=== PATIENT | male | born 1935 | race Caucasian/White ===

== ENCOUNTER 2017-03-24 05:54 | Day surgery (SDC) | payer MEDICARE, BC, OTHER ==
[2017-03-23 13:50] VITALS: BMI 24.4
[2017-03-24] MEDS ORDERED: Diprivan 0 ML ONE (07:25)
--- NOTE | 2017-03-24 09:56 | OP ---
DATE OF PROCEDURE: 03/24/2017 PREPROCEDURE DIAGNOSIS: Atrial flutter. POST-PROCEDURE DIAGNOSIS: Successful cardioversion. PROCEDURES PERFORMED: Synchronized cardioversion. SUMMARY: Mr. Hogan is a pleasant 81-year-old white gentleman who comes to the hospital for planned [facility] cardioversion. Please see CT report for details. After patient was cleared from blood clots, pads were placed. Anesthesia department provided with se dation for the patient. Please see their notes for details. After adequate sedation was achieved, a single 100 joules synchronized shock was delivered successfully, converting him from atrial flutter to sinus rhythm. He did have a few runs of nonsustained SVT post shock, but he has remained in sinus . RECOMMENDATIONS: 1. Continue flecainide, beta-siena and Eliquis for a minimum of 4 weeks. 2. If it recurs before the surgery we will plan on sending him to EP for an ablation prior to surger y. 3. May discharge home today. Follow up in the office in 2 weeks.
--- NOTE | 2017-03-24 10:05 | ECHO ---
TRANSESOPHAGEAL ECHOCARDIOGRAM: DATE OF SERVICE: 03/24/17 REASON FOR STUDY: Transesophageal echo was done for evaluation of thrombus. He has atrial flutter and is scheduled for cardioversion. TECHNIQUE: The anesthesia department provided anesthesia for the patient. Please see their notes for details. Af ter adequate sedation was achieved, the transesophageal probe was inserted into the patient's mouth a nd into the esophagus without problems. Multiplanar views were then obtained. FINDINGS: Left ventricle appears to be normal size with normal wall thickness. Systolic function appears to be low normal with EF estimated at about 50-55%. Left atrium is mildly dilated. Right atrium is mildly dilated. Right ventricle is normal size with normal systolic function. Aortic root is normal size. Aortic valve is structurally normal. No stenosis or regurgitation. Three cusps. Mitral valve is structurally normal. There is moderate mitral regurgitation. No stenosis. Tricuspid valve is structurally normal. There is mild TR. No stenosis. Pulmonary valve structurally normal. There is mild PI. No stenosis. Left atrial appendage is a large appendage with normal velocities while the patient in flutter and no evidence of mass or thrombus. Interatrial septum appears intact by color Doppler. Thoracic aorta shows minimal intimal thickening. No aneurysmal dilatations or dissections on the port ion that was reviewed. The arch was not well visualized. CONCLUSIONS: 1. LVEF at 50-55%. 2. Biatrial enlargement. 3. Moderate MR. 4. Large left atrial appendage without mass or thrombus. 5. Mild TR. 6. Mild PI.
== END 2017-03-24 09:55 | disposition home or self-care (01) ==
LOC: CCL 05:54
PROVIDERS: ATTEND Internal Medicine Cardiovascular Disease
DX: I48.3 Typical atrial flutter (principal); R35.0 Frequency of micturition; M19.90 Unspecified osteoarthritis, unspecified site; Z79.01 Long term (current) use of anticoagulants; Z79.899 Other long term (current) drug therapy; Z98.890 Other specified postprocedural states; Z85.828 Personal history of other malignant neoplasm of skin
CPT/HCPCS: 36415; 84443; 92960; 93312; J2704

== ENCOUNTER 2018-04-02 09:56 | Outpatient (CLI) | payer MEDICARE, BC, OTHER ==
--- NOTE | 2018-04-02 11:13 | ULT ---
RENAL ULTRASOUND: History: Chronic renal disease. FINDINGS: Real-time imaging of the right and left kidneys were performed. Right kidney measures 8.9 and the lef t kidney 9.3 cm in size. No signs of cyst, mass, or obstruction. Bladder is somewhat trabeculated in appearance. Bladder volume of 500 cc was noted. Post void was not obtained. IMPRESSION: 1. No evidence of cyst, mass, or obstruction or either kidney. 2. Irregular somewhat trabeculated appearance to the bladder wall. No focal discrete abnormality. POS: [facility]
== END 2018-04-02 09:57 | disposition home or self-care (01) ==
LOC: BICULT 09:56
PROVIDERS: ATTEND Internal Medicine Nephrology
DX: N18.3 Chronic kidney disease, stage 3 (moderate) (principal); N32.89 Other specified disorders of bladder
CPT/HCPCS: 76770

== ENCOUNTER 2020-08-06 11:53 | Outpatient (CLI) | payer MEDICARE, BC, OTHER ==
[2020-08-06 14:50] LABS: Bilirubin Neg (Negative); Blood, Urine 150 (Negative); Clarity Cloudy (Clear); Glucose, Urine (Dipstick) Normal (Negative); Ketone, Urine Negative (Negative); Leukocyte 500 (Negative); Nitrite Negative (Negative); Protein, Urine (Dipstick) 30 mg/dl (Neg-Trace); Urobilinogen Normal mg/dL (Less than 2)
[2020-08-06 15:15] LABS: Anion Gap 14 mmol/L (10-20); BUN (Urea Nitrogen) 34 mg/dL (8.4-25.7); Calc. Creatinine Clearance 0 mL/min (70-130); Calcium 8.7 mg/dL (7.8-10.44); Carbon Dioxide 24 mmol/L (23-31); Chloride 103 mmol/L (98-107); Glucose 70 mg/dL (83-110); Potassium 4.9 mmol/L (3.5-5.1); Sodium 136 mmol/L (136-145)
[2020-08-06 15:19] LABS: Hemoglobin 12.9 g/dL (13.5-17.5); Mean Corpuscular HGB CONC 33.1 g/dL (32.0-36.0); Mean Corpuscular Hemoglobin 30.6 pg (27.0-33.0); Mean Corpuscular Volume 92.6 fl (81.2-95.1); Platelet Count 204 10x3/uL (150-450); RBC Distribution Width 13.2 % (11.5-14.5); Red Blood Cell (RBC) Count 4.21 10x6/uL (4.32-5.72); White Blood Cell (WBC) Count 9.6 10x3/uL (3.5-10.5)
[2020-08-06 15:50] LABS: WBC/HPF Greater than 50 HPF (0-3)
[2020-08-06 15:54] LABS: Bacteria/HPF 1+ HPF (None Seen)
[2020-08-06 15:56] LABS: Squamous Epithelial 0-3 HPF (0-3)
== END 2020-08-06 11:54 | disposition home or self-care (01) ==
LOC: LABBT 11:53
PROVIDERS: ATTEND Urology
DX: Z01.818 Encounter for other preprocedural examination (principal); N40.1 Benign prostatic hyperplasia with lower urinary tract symptoms; R33.8 Other retention of urine
CPT/HCPCS: 80048; 81001; 85027; 87086; 93005; 93010

== ENCOUNTER 2020-08-11 09:00 | Observation (INO) | payer MEDICARE, BC, OTHER ==
[2020-08-10 10:03] VITALS: BMI 25.1
[2020-08-11] MEDS ORDERED: Levofloxacin 500 mg/D5W 100 ml Premix Bag ONE (09:53)
[2020-08-11] MEDS ORDERED: Ondansetron PF 4 MG/2 ML Vial ONE (13:14)
[2020-08-11] MEDS ORDERED: PROPOFOL 200 MG/20 ML VIAL ONE (13:14)
[2020-08-11] MEDS ORDERED: PHENYLEPHRINE-NS 100 MCG/ML 10 ML SYRINGE ONE (13:14)
[2020-08-11] MEDS ORDERED: Lidocaine 1% PF 5 ML VIAL ONE (13:14)
[2020-08-11] MEDS ORDERED: Dexamethasone 20 MG/5 ML VIAL ONE (13:14)
[2020-08-11] MEDS ORDERED: diphenhydrAMINE 50 MG/ML VIAL IVP PRN (13:20)
[2020-08-11] MEDS ORDERED: HYDROcodone/Acetaminophen 5/325 mg Tablet PO PRN (13:20)
[2020-08-11] MEDS ORDERED: Acetaminophen 500 MG TAB PO PRN (13:20)
[2020-08-11] MEDS ORDERED: Ketorolac Tromethamine 30 MG/ML VIAL IVP PRN (13:20)
[2020-08-11] MEDS ORDERED: Hyoscyamine Sulfate SL 0.125 mg Tablet SL PRN (13:20)
[2020-08-11] MEDS ORDERED: Ondansetron PF 4 MG/2 ML Vial IVP PRN (13:20)
[2020-08-11] MEDS ORDERED: Zolpidem Tartrate 5 MG TAB PO PRN (13:20)
[2020-08-11] MEDS ORDERED: hydrALAZINE 20 MG/ML VIAL SLOW IVP PRN (13:20)
[2020-08-11] MEDS ORDERED: Fentanyl 100 MCG/2 ML VIAL ONE (14:45)
[2020-08-11] MEDS: Sodium Chloride 0.9% 1,000 ML IV SCH (19:53)
[2020-08-11] MEDS: Docusate 100 MG CAP PO SCH (20:50)
[2020-08-11] MEDS ORDERED: Famotidine/PF 20 mg/2ml Vial SLOW IVP SCH (21:00)
[2020-08-11] MEDS ORDERED: Tamsulosin HCl 0.4 MG CAP PO SCH (21:00)
[2020-08-12] MEDS: Sodium Chloride 0.9% 1,000 ML IV SCH (01:22)
[2020-08-12 03:29] VITALS: BP 103/55; TEMP 97.6
[2020-08-12] MEDS ORDERED: Aspirin 81 mg Enteric Coated Tablet PO SCH (09:00)
[2020-08-12] MEDS: Docusate 100 MG CAP PO SCH (10:28)
== END 2020-08-12 11:26 | disposition home or self-care (01) ==
LOC: SDC 09:00 → SURG A 13:20
PROVIDERS: ADMIT Urology; ATTEND Urology
PROC: 0VT08ZZ Resection of Prostate, Via Natural or Artificial Opening Endoscopic (ICD-10-PCS; principal; 2020-08-11)
DX: N40.1 Benign prostatic hyperplasia with lower urinary tract symptoms (principal); R33.8 Other retention of urine; N32.89 Other specified disorders of bladder; N32.3 Diverticulum of bladder; M19.90 Unspecified osteoarthritis, unspecified site; E78.00 Pure hypercholesterolemia, unspecified; Z79.82 Long term (current) use of aspirin; Z79.899 Other long term (current) drug therapy
CPT/HCPCS: 88305; 96374; G0378; J1100; J1956; J2405; J2704; J3010; S0028

== ENCOUNTER 2022-02-18 11:04 | Outpatient (CLI) | payer MEDICARE, BC, OTHER ==
[2022-02-18 13:13] LABS: #Basophils 0.1 10x3/uL (0.0-0.2); #Eosinphils 0.3 10x3/uL (0.0-0.5); #Monocytes 0.7 10x3/uL (0.0-1.1); #Neutrophils 3.8 10x3/uL (1.5-8.4); %Basophils 0.8 % (0.0-2.0); %Eosinophils 4.1 % (0.0-6.0); %Lymphocytes 27.5 % (18.0-47.0); %Monocytes 9.9 % (0.0-10.0); %Neutrophils 57.5 % (40.0-75.0); Hemoglobin 15.5 g/dL (13.5-17.5); Mean Corpuscular HGB CONC 33.8 g/dL (32.0-36.0); Mean Corpuscular Hemoglobin 30.8 pg (27.0-33.0); Mean Corpuscular Volume 91.1 fl (81.2-95.1); Mean Platelet Volume 9.7 fl (7.4-10.4); Platelet Count 217 10x3/uL (150-450); RBC Distribution Width 13.4 % (11.5-14.5); Red Blood Cell (RBC) Count 5.04 10x6/uL (4.32-5.72); White Blood Cell (WBC) Count 6.7 10x3/uL (3.5-10.5)
[2022-02-18 13:39] LABS: Anion Gap 16 mmol/L (10-20); BUN (Urea Nitrogen) 43 mg/dL (8.4-25.7); Calc. Creatinine Clearance 0 mL/min (70-130); Calcium 9.3 mg/dL (7.8-10.44); Carbon Dioxide 23 mmol/L (23-31); Chloride 104 mmol/L (98-107); Estimated GFR 44; Glucose 84 mg/dL (83-110); Potassium 5.7 mmol/L (3.5-5.1); Sodium 137 mmol/L (136-145)
== END 2022-02-18 11:05 | disposition home or self-care (01) ==
LOC: LABBT 11:04
PROVIDERS: ATTEND Specialist
DX: Z01.818 Encounter for other preprocedural examination (principal); K40.90 Unilateral inguinal hernia, without obstruction or gangrene, not specified as recurrent
CPT/HCPCS: 80048; 85025; 93005; 93010

== ENCOUNTER 2022-03-23 14:34 | Outpatient (CLI) | payer MEDICARE, BC, OTHER ==
[2022-03-23 16:09] LABS: #Eosinphils 0.2 10x3/uL (0.0-0.5); #Monocytes 0.7 10x3/uL (0.0-1.1); #Neutrophils 6.1 10x3/uL (1.5-8.4); %Basophils 0.5 % (0.0-2.0); %Lymphocytes 19.5 % (18.0-47.0); %Monocytes 7.8 % (0.0-10.0); Hemoglobin 14.8 g/dL (13.5-17.5); Mean Corpuscular HGB CONC 33.5 g/dL (32.0-36.0); Mean Corpuscular Hemoglobin 30.5 pg (27.0-33.0); Mean Corpuscular Volume 90.9 fl (81.2-95.1); Mean Platelet Volume 10.1 fl (7.4-10.4); Platelet Count 224 10x3/uL (150-450); RBC Distribution Width 13.7 % (11.5-14.5); Red Blood Cell (RBC) Count 4.86 10x6/uL (4.32-5.72); White Blood Cell (WBC) Count 8.7 10x3/uL (3.5-10.5)
[2022-03-23 16:22] LABS: Anion Gap 15 mmol/L (10-20); BUN (Urea Nitrogen) 42 mg/dL (8.4-25.7); Calc. Creatinine Clearance 0 mL/min (70-130); Calcium 9.1 mg/dL (7.8-10.44); Carbon Dioxide 26 mmol/L (23-31); Chloride 101 mmol/L (98-107); Estimated GFR 32; Glucose 96 mg/dL (83-110); Potassium 4.8 mmol/L (3.5-5.1); Sodium 137 mmol/L (136-145)
== END 2022-03-23 14:35 | disposition home or self-care (01) ==
LOC: LABBT 14:34
PROVIDERS: ATTEND Internal Medicine Cardiovascular Disease
DX: Z01.818 Encounter for other preprocedural examination (principal); I48.92 Unspecified atrial flutter
CPT/HCPCS: 80048; 85025; 93005; 93010

== ENCOUNTER 2022-03-25 10:24 | Day surgery (SDC) | payer MEDICARE, BC, OTHER ==
[2022-03-24 10:08] VITALS: BMI 25.1
[2022-03-25] MEDS ORDERED: PROPOFOL 20 ML ONE (12:58)
[2022-03-25] MEDS ORDERED: GLYCOPYRROLATE/PF 0.2 MG/ML VIAL ONE (13:04)
== END 2022-03-25 14:32 | disposition home or self-care (01) ==
LOC: SDC 10:24
PROVIDERS: ATTEND Internal Medicine Cardiovascular Disease
PROC: B246ZZ4 Ultrasonography of Right and Left Heart, Transesophageal (ICD-10-PCS; principal; 2022-03-25)
PROC: 5A2204Z Restoration of Cardiac Rhythm, Single (ICD-10-PCS; 2022-03-25)
DX: I48.3 Typical atrial flutter (principal); I08.1 Rheumatic disorders of both mitral and tricuspid valves; I70.0 Atherosclerosis of aorta; I44.0 Atrioventricular block, first degree; M19.90 Unspecified osteoarthritis, unspecified site; Z79.01 Long term (current) use of anticoagulants; Z79.82 Long term (current) use of aspirin; Z79.899 Other long term (current) drug therapy
CPT/HCPCS: 92960; 93005; 93312; J3490; 93010; J2704

== ENCOUNTER 2022-04-28 12:33 | Outpatient (CLI) | payer MEDICARE, BC, OTHER ==
[2022-04-28 13:36] LABS: #Eosinphils 0.2 10x3/uL (0.0-0.5); #Monocytes 0.6 10x3/uL (0.0-1.1); #Neutrophils 4.3 10x3/uL (1.5-8.4); %Basophils 0.4 % (0.0-2.0); %Eosinophils 2.8 % (0.0-6.0); %Monocytes 9.1 % (0.0-10.0); %Neutrophils 64.4 % (40.0-75.0); Hemoglobin 14.4 g/dL (13.5-17.5); Mean Corpuscular HGB CONC 32.5 g/dL (32.0-36.0); Mean Corpuscular Hemoglobin 29.6 pg (27.0-33.0); Mean Platelet Volume 9.8 fl (7.4-10.4); Platelet Count 194 10x3/uL (150-450); RBC Distribution Width 14.1 % (11.5-14.5); Red Blood Cell (RBC) Count 4.87 10x6/uL (4.32-5.72); White Blood Cell (WBC) Count 6.7 10x3/uL (3.5-10.5)
[2022-04-28 13:46] LABS: Anion Gap 13 mmol/L (10-20); BUN (Urea Nitrogen) 37 mg/dL (8.4-25.7); Calc. Creatinine Clearance 0 mL/min (70-130); Calcium 8.7 mg/dL (7.8-10.44); Carbon Dioxide 25 mmol/L (23-31); Chloride 104 mmol/L (98-107); Estimated GFR 38; Glucose 77 mg/dL (83-110); Potassium 4.6 mmol/L (3.5-5.1); Sodium 137 mmol/L (136-145)
== END 2022-04-28 12:34 | disposition home or self-care (01) ==
LOC: LABBT 12:33
PROVIDERS: ATTEND Specialist
DX: Z01.818 Encounter for other preprocedural examination (principal); K40.90 Unilateral inguinal hernia, without obstruction or gangrene, not specified as recurrent
CPT/HCPCS: 71046; 80048; 85025; 93005; 93010

== ENCOUNTER 2022-05-05 11:06 | Day surgery (SDC) | payer MEDICARE, BC, OTHER ==
[2022-05-03 13:52] VITALS: BMI 25.1
[2022-05-05] MEDS ORDERED: Acetaminophen 500 MG TAB ONE (12:13)
[2022-05-05] MEDS ORDERED: Ketorolac Tromethamine 30 MG/ML VIAL ONE (12:13)
[2022-05-05] MEDS ORDERED: Metoprolol Tartrate 5 MG/5 ML VIAL ONE (12:26)
[2022-05-05] MEDS ORDERED: Metoprolol Tartrate 25 MG TAB PO SCH (12:30)
[2022-05-05] MEDS ORDERED: Bupivacaine/Epinephrine 0.25% 30 ML VIAL ONE (13:19)
[2022-05-05] MEDS ORDERED: CEFAZOLIN 2 GM VIAL ONE (14:11)
[2022-05-05] MEDS ORDERED: Sodium Chloride 0.9% 100 ML ONE (14:11)
[2022-05-05] MEDS ORDERED: fentaNYL PF 100 MCG/2 ML SYRINGE ONE (14:19)
[2022-05-05] MEDS ORDERED: SUGAMMADEX SODIUM 200 MG/2 ML VIAL ONE (14:19)
[2022-05-05] MEDS ORDERED: Ondansetron PF 4 MG/2 ML Vial ONE (14:30)
[2022-05-05] MEDS ORDERED: Dexamethasone 20 MG/5 ML VIAL ONE (14:30)
[2022-05-05] MEDS ORDERED: ePHEDrine 50 MG/ML VIAL ONE (14:30)
[2022-05-05] MEDS ORDERED: Lidocaine 1% PF 5 ML VIAL ONE (14:30)
[2022-05-05] MEDS ORDERED: Rocuronium Bromide 10 MG/ML (10ML VIAL) ONE (14:30)
[2022-05-05] MEDS ORDERED: PROPOFOL 200 MG/20 ML VIAL ONE (14:30)
== END 2022-05-05 17:50 | disposition home or self-care (01) ==
LOC: SDC 11:06
PROVIDERS: ATTEND Specialist
PROC: 0YU64JZ Supplement Left Inguinal Region with Synthetic Substitute, Percutaneous Endoscopic Approach (ICD-10-PCS; principal; 2022-05-05)
PROC: 8E0W4CZ Robotic Assisted Procedure of Trunk Region, Percutaneous Endoscopic Approach (ICD-10-PCS; 2022-05-05)
DX: K40.91 Unilateral inguinal hernia, without obstruction or gangrene, recurrent (principal); N35.919 Unspecified urethral stricture, male, unspecified site; I48.92 Unspecified atrial flutter; I44.0 Atrioventricular block, first degree; E78.00 Pure hypercholesterolemia, unspecified; M19.90 Unspecified osteoarthritis, unspecified site; Z79.01 Long term (current) use of anticoagulants; Z79.899 Other long term (current) drug therapy; Z98.890 Other specified postprocedural states
CPT/HCPCS: 49651; C1769; C1781; J1100; J1885; J2405; J2704; J3490

== ENCOUNTER 2022-09-23 10:43 | Inpatient (IN) | payer MEDICARE, BC, OTHER ==
[2022-09-23 11:30] LABS: #Eosinphils 0.2 thou/uL (0.0-0.7); #Monocytes 0.6 thou/uL (0.11-0.59); #Neutrophils 3.1 thou/uL (1.40-6.50); %Basophils 0.4 % (0.0-1.0); %Eosinophils 3.3 % (0.0-10.0); %Lymphocytes 31.6 % (21.0-51.0); %Monocytes 9.8 % (0.0-10.0); %Neutrophils 54.7 % (42.0-75.0); Hemoglobin 13.6 g/dL (14.0-18.0); Mean Corpuscular HGB CONC 32.7 g/dL (32.0-36.0); Mean Corpuscular Hemoglobin 31.1 pg (27.0-31.0); Mean Platelet Volume 9.9 fL (7.4-10.4); Platelet Count 170 10x3/uL (130-400); RBC Distribution Width 13.7 % (11.5-14.5); Red Blood Cell (RBC) Count 4.38 mill/uL (4.70-6.10); White Blood Cell (WBC) Count 5.7 10x3/uL (4.8-10.8)
[2022-09-23 11:41] LABS: INR-International Normal Ratio 1.2; PTT 36.6 sec (22.9-36.1); Prothrombin Time 15.9 sec (12.0-14.7)
[2022-09-23 11:54] LABS: ALT (SGPT) 14 U/L (8-55); AST (SGOT) 18 U/L (5-34); Albumin 3.4 g/dL (3.4-4.8); Alkaline Phosphatase 71 U/L (40-110); Anion Gap 10 mmol/L (10-20); BUN (Urea Nitrogen) 37 mg/dL (8.4-25.7); Bilirubin, Total 0.5 mg/dL (0.2-1.2); Calc. Creatinine Clearance 0 mL/min (70-130); Calcium 8.7 mg/dL (7.8-10.44); Carbon Dioxide 26 mmol/L (23-31); Chloride 106 mmol/L (98-107); Estimated GFR 49; Globulin 3.2 g/dL (2.4-3.5); Glucose 78 mg/dL (83-110); Lipase 32 U/L (8-78); Protein, Total 6.6 g/dL (5.8-8.1); Sodium 137 mmol/L (136-145)
[2022-09-23] MEDS ORDERED: Acetaminophen 325 MG TAB PO PRN (14:13)
[2022-09-23] MEDS ORDERED: Ondansetron PF 4 MG/2 ML Vial IVP PRN (14:13)
[2022-09-23 15:28] VITALS: BMI 24.9
[2022-09-23] MEDS: Flecainide 50 MG TAB PO SCH (20:01)
[2022-09-24 04:18] LABS: #Eosinphils 0.2 thou/uL (0.0-0.7); #Monocytes 0.5 thou/uL (0.11-0.59); #Neutrophils 3.1 thou/uL (1.40-6.50); %Basophils 0.4 % (0.0-1.0); %Eosinophils 4.3 % (0.0-10.0); %Lymphocytes 30.7 % (21.0-51.0); %Monocytes 8.9 % (0.0-10.0); %Neutrophils 55.5 % (42.0-75.0); Hemoglobin 13.5 g/dL (14.0-18.0); Mean Corpuscular HGB CONC 33.2 g/dL (32.0-36.0); Mean Corpuscular Hemoglobin 31.3 pg (27.0-31.0); Mean Corpuscular Volume 94.2 fl (78.0-98.0); Platelet Count 173 10x3/uL (130-400); RBC Distribution Width 13.5 % (11.5-14.5); Red Blood Cell (RBC) Count 4.32 mill/uL (4.70-6.10); White Blood Cell (WBC) Count 5.6 10x3/uL (4.8-10.8)
[2022-09-24 04:49] LABS: Anion Gap 9 mmol/L (10-20); BUN (Urea Nitrogen) 33 mg/dL (8.4-25.7); Calc. Creatinine Clearance 37 mL/min (70-130); Calcium 8.5 mg/dL (7.8-10.44); Carbon Dioxide 26 mmol/L (23-31); Chloride 107 mmol/L (98-107); Estimated GFR 44; Glucose 93 mg/dL (83-110); Potassium 5.1 mmol/L (3.5-5.1); Sodium 137 mmol/L (136-145)
[2022-09-24] MEDS: Famotidine 20 MG TAB PO SCH (10:22)
[2022-09-24] MEDS: Flecainide 50 MG TAB PO SCH ×2 (10:22→20:03)
[2022-09-25] MEDS: Flecainide 50 MG TAB PO SCH ×2 (09:04→20:25)
[2022-09-25] MEDS: Famotidine 20 MG TAB PO SCH (09:04)
[2022-09-26 06:20] LABS: Anion Gap 12 mmol/L (10-20); BUN (Urea Nitrogen) 26 mg/dL (8.4-25.7); Calc. Creatinine Clearance 38 mL/min (70-130); Calcium 8.4 mg/dL (7.8-10.44); Carbon Dioxide 23 mmol/L (23-31); Chloride 106 mmol/L (98-107); Estimated GFR 45; Glucose 84 mg/dL (83-110); Magnesium 1.8 mg/dL (1.6-2.6); Potassium 4.1 mmol/L (3.5-5.1); Sodium 137 mmol/L (136-145)
[2022-09-26 08:43] VITALS: BP 146/76; TEMP 98.2
[2022-09-26] MEDS: Famotidine 20 MG TAB PO SCH (08:51)
[2022-09-26] MEDS: Flecainide 50 MG TAB PO SCH (08:52)
== END 2022-09-26 10:38 | disposition home or self-care (01) | DRG 310 ==
LOC: ERS 10:43 → 2SW 13:52 → OBSVTOIN 09-26 08:09
PROVIDERS: ADMIT Internal Medicine; ATTEND Hospitalist
DX: R00.1 Bradycardia, unspecified (principal); N40.0 Benign prostatic hyperplasia without lower urinary tract symptoms; I48.0 Paroxysmal atrial fibrillation; Z79.899 Other long term (current) drug therapy; Z96.659 Presence of unspecified artificial knee joint; N18.31 Chronic kidney disease, stage 3a; I13.10 Hypertensive heart and chronic kidney disease without heart failure, with stage 1 through stage 4 chronic kidney disease, or unspecified chronic kidney disease
CPT/HCPCS: 36415; 71045; 80048; 80053; 83690; 83735; 83880; 84484; 85025; 85610; 85730; 93005; 93306; 96372; G0378; J1650